=== PATIENT | female | born 1955 | race Caucasian/White ===

== ENCOUNTER → 2017-11-28 | Outpatient (CLI) | payer OTHER ==
[~2017-11-28] MED LIST: ASPI325 PO; ATEN50; Acetaminophen-1 EAC1 PO; CLON1 PO; HYDCHL25 PO; HYDR1TAB94 PO; IBUP800 PO; MULTCH; NUTROPIN; QUET100 PO; SODBIC650; STOMUL
== END | disposition home or self-care (01) ==
LOC: LAB SHORT 12:26 → LAB EV 12:26
DX: L08.9 Local infection of the skin and subcutaneous tissue, unspecified (principal)
CPT/HCPCS: 87070; 87075; 87205